=== PATIENT | female | born 1955 | race Two or more races ===

== ENCOUNTER → 2021-02-10 | Outpatient (CLI) | payer OTHER ==
[~2021-02-10] MED LIST: FLUNNIA; HYDACE5 PO; NAPR500 PO; PHENA200 PO; RXHYDACE PO; SULTRIDS PO; [UNRECOGNIZED DRUG - OTHER]
== END ==
LOC: LAB SHORT 12:17 → LAB EV 12:17
DX: N39.0 Urinary tract infection, site not specified (principal)
CPT/HCPCS: 87077; 87086; 87186

== ENCOUNTER → 2024-04-06 | Outpatient (CLI) | payer OTHER ==
[2024-04-06 20:11] LABS: Calcium, Blood 8.9 mg/dL (8.5-10.1); Potassium, Blood 4.1 mmol/L (3.5-5.5)
== END | disposition home or self-care (01) ==
LOC: LAB SHORT 19:03 → LAB 19:03
PROVIDERS: Hospitalist
DX: I10 Essential (primary) hypertension (principal)
CPT/HCPCS: 80048